=== PATIENT | male | born 1990 | race Caucasian/White ===

== ENCOUNTER 2019-05-30 09:43 | Emergency (ER) | payer OTHER ==
[~2019-05-30] VITALS: Ht 182.9 cm; Wt 90.7 kg
[2019-05-30] MEDS ORDERED: NKM (09:56)
--- NOTE | 2019-05-30 10:00 | NUR ---
ED Nurse Note: Patient walked into ED from home c/o right foot pain for 1 week. patient reports first he felt pain when bearing weight, but it's getting worse, now he cannot bear weight. patient denies any injury. patient reports the swelling and redness of the dorsal foot started 2-3 days ago. patient is alert awake x4 ambulatory, breathing unlabored and even, able to speak in full sentences.
--- NOTE | 2019-05-30 10:17 | Emergency Room Report ---
History of Present Illness General Chief Complaint: Lower Extremity Injury Source: Patient Present Illness HPI Patient presents with complaints of swelling and discomfort to the right foot 1 week he has noticed some increased discomfort and now some increased swelling Also some mild increased erythema now he initially reports that he thinks an ice pack that he had put yesterday might have caused some of the redness Pain is worse with trying to ambulate denies any knee pain denies any pelvic pain patient recalls that possibly jumping off one of the motorized scooters could have caused some discomfort however it does not recall a specific injury Allergies: Coded Allergies: No Known Allergies (Unverified , 05/30/19) Patient History Past Medical History: see triage record Reviewed Nursing Documentation: PMH: Agreed; PSxH: Agreed Nursing Documentation-PMH Past Medical History: No Stated History Review of Systems All Other Systems: negative except mentioned in HPI Physical Exam Vital Signs Date Time Temp Pulse Resp B/P (MAP) Pulse Ox O2 Delivery O2 Flow Rate FiO2 05/30/19 09:54 98.4 96 19 137/90 (106) 97 Room Air Sp02 EP Interpretation: reviewed, normal General Appearance: well appearing, no apparent distress Head: normocephalic, atraumatic Eyes: bilateral eye PERRL, bilateral eye EOMI ENT: hearing grossly normal, normal pharynx Neck: supple Musculoskeletal: swelling - Some minimal swelling on the right foot compared to the left, small approximately half centimeter by half centimeter region of mild erythema superficial dorsal no calf tenderness, Neurologic: alert, oriented x3, responsive Skin: other - As above Lymphatic: no adenopathy Procedures Splinting Splinting : Consent: Verbal Location: Right foot Hand-Made Type: plaster Splint: foot Pre-Proc Neuro Vasc Exam: normal Post-Proc Neuro Vasc Exam: normal Patient Tolerated: Well Complications: None Medical Decision Making Diagnostic Impression: Primary Impression: Foot pain, right ER Course Given the patient's history and presentation multiple differentials and consideration including but not limited to sprain/strain, occult fracture Possible insect bite or other infectious pathology, my suspicion for any vascular pathology is low The area appears very minimally swollen x-ray imaging does not show any acute pathology Given the patient's discomfort he is provided with crutches and a foot splint Patient will be treated with possible secondary insect bite as well Have rest and follow closely with primary physician Other X-Ray Diagnostic Results Other X-Ray Diagnostic Results : X-Ray ordered: right Foot # of Views/Limited Vs Complete: 3 View Indication: Pain EP Interpretation: Yes Interpretation: no dislocation, no soft tissue swelling, no fractures Impression: No acute disease Electronically Signed by: Alejandro Bell DO Last Vital Signs Date Time Temp Pulse Resp B/P (MAP) Pulse Ox O2 Delivery O2 Flow Rate FiO2 05/30/19 09:54 98.4 96 19 137/90 (106) 97 Room Air Status: improved Disposition: HOME, SELF-CARE Condition: Improved Scripts Ibuprofen* (MOTRIN*) 600 Mg Tablet 600 MG ORAL Q8H PRN for For Pain, #20 TAB 0 Refills Prov: Alejandro Bell DO 05/30/19 Prednisone* (PREDNISONE*) 20 Mg Tablet 20 MG ORAL BID for 4 Days, #8 TAB Prov: Alejandro Bell DO 05/30/19 Diphenhydramine Hcl* (BENADRYL*) 25 Mg Capsule 25 MG ORAL Q8HR PRN for Itching for 5 Days, CAP Prov: Alejandro Bell DO 05/30/19 Additional Instructions: Patient is provided with the discharge instructions notified to follow up with primary doctor in the next 2-3 days otherwise return to the er with any worsening symptoms. Please note that this report is being documented using [employer] technology. This can lead to erroneous entry secondary to incorrect interpretation by the dictating instrument. Alejandro Bell DO May 30, 2019 10:17
--- NOTE | 2019-05-30 10:40 | NUR ---
ED Nurse Note: xray taken at bedside.
--- NOTE | 2019-05-30 10:50 | Diagnostic Imaging Report ---
Indication: Foot Pain Comparison: None Findings: 3 views of the right foot were obtained. No acute fractures, malalignment, erosions or periostitis are identified. Soft tissue swelling noted. Impression: No acute findings.
[2019-05-30] MEDS ORDERED: BENADRYL25 MG ORAL (10:55)
[2019-05-30] MEDS ORDERED: PREDNISONE20 MG ORAL (10:55)
[2019-05-30] MEDS ORDERED: IBUPROFEN600 MG ORAL (10:55)
[2019-05-30 11:02] VITALS: BP 137/90
--- NOTE | 2019-05-30 11:02 | NUR ---
ER DISCHARGE NOTE: Patient is cleared to be discharged per PARRIS TURCIOS, pt is aox4, on room air, with stable vital signs. pt was given dc and prescription instructions, pt was able to verbalize understanding, pt id band removed without complications. pt is able to ambulate with steady gait. pt took all belongings. patient provided a boot to support his foot and crutches. instructions given to use crutches properly, patient demonstrated back proper use.
== END 2019-05-30 11:02 | disposition home or self-care (01) ==
LOC: EMR 10:15
DX: M79.671 Pain in right foot (principal)
CPT/HCPCS: 29515; 99283